=== PATIENT | male | born 1970 | race African-American/Black ===

== ENCOUNTER 2016-10-28 23:00 | Emergency (ER) | payer OTHER ==
--- NOTE | ~2016-10-28 | EKG ---
PATIENT: BRENDA VELASCO UNIT #: [id number] Ventricular Rate: 83 BPM Atrial Rate: 83 BPM P-R Interval: 186 ms QRS Duration: 98 ms Q-T Interval: 358 ms QTC Calculation(Bezet): 420 ms P [place]: 72 degrees Calculated R [place]: 11 degrees Calculated T [place]: 64 degrees Diagnosis Line: Normal sinus rhythm Diagnosis Line: Normal ECG Diagnosis Line: No previous ECGs available Diagnosis Line: Confirmed by LYNDSEY WILSON MD ([id number]) on 11/05/2016 Diagnosis Line: 11:53:07 AM INTERPRETING MD: KATIE HOU
--- NOTE | ~2016-10-28 | CT16 ---
[facility] A Service [facility] RADIOLOGY TEXT RESULTS PATIENT: BRENDA VELASCO LOCATION: SED : 72 UNIT #: [id number] AGE: [address]: Elroy Mckeon MD SEX: M ORDER DR: [id number] [address] [address] [id number] E MR#: [id number] Acc #: [id number] NAME: BRENDA VELASCO : 1970 SEX: M STUDY DATE/TIME: 10/29/2016 0:44 UNIT: SED ROOM: STUDY DESCRIPTION: CT Angio Chest for PE Attending Physician: Elroy Mckeon M.D. Ordering Physician: Elroy Mckeon M.D. MEDICAL IMAGING REPORT This report is preliminary unless electronic signature is present. EXAM CT chest with pulmonary embolus protocol HISTORY Chest pain. Shortness of air. TECHNIQUE Patient was given 80 cc of Isovue-370 and spiral imaging was performed through the chest. 3-D reconstructions of the pulmonary arteries were generated. This CT exam was performed with one or more of the following radiation dose reduction techniques: automatic exposure control, adjustment of mA and/or kV according to patient size, and iterative reconstruction. FINDINGS There is optimal opacification of the pulmonary arteries and there is no CT evidence of pulmonary embolus. The aorta is normal in size. The visualized portions of the upper abdomen are normal. The thyroid gland is normal. The lungs are clear. The bones are unremarkable. IMPRESSION Normal study. No CT evidence of pulmonary embolus. Dictated by... Neo Nava M.D. THIS IS AN ELECTRONICALLY VERIFIED REPORT Neo Nava M.D. at 10/29/2016 2:15 PM [facility] A Service [facility] RADIOLOGY TEXT RESULTS PATIENT: BRENDA VELASCO LOCATION: SED : 71 UNIT #: [id number] AGE: [address]: Elroy Mckeon MD SEX: M ORDER DR: RED/theo TD: 10/29/2016 01:19 JOB #: [id number] MEDICAL IMAGING REPORT Page 1 of 1
--- NOTE | ~2016-10-28 | CR72 ---
[facility]. [facility] A Service of [facility] RADIOLOGY TEXT RESULTS PATIENT: BRENDA VELASCO LOCATION: SED : 71 UNIT #: [id number] AGE: [address]: Elroy Mckeon MD SEX: M ORDER DR: [id number] [address] [address] [id number] E MR#: [id number] Acc #: [id number] NAME: BRENDA VELASCO : 1970 SEX: M STUDY DATE/TIME: 10/28/2016 23:19 UNIT: SED ROOM: STUDY DESCRIPTION: CR Chest Single View Portable Attending Physician: Elroy Mckeon M.D. Ordering Physician: Elroy Mckeon M.D. MEDICAL IMAGING REPORT This report is preliminary unless electronic signature is present. EXAM Portable chest HISTORY Chest pain, shortness of air for 30 minutes. FINDINGS AP portable view of the chest is obtained. The heart size and vascularity are normal. The lungs are clear. The bones are normal. IMPRESSION No active disease. Dictated by... Neo Nava M.D. THIS IS AN ELECTRONICALLY VERIFIED REPORT Neo Nava M.D. at 10/29/2016 1:59 AM FEL/pcl TD: 10/29/2016 00:36 JOB #: [id number] MEDICAL IMAGING REPORT Page 1 of 1
[2016-10-28 22:55] LABS: BASOPHIL# 0.1 X10e3 (0-0.3); BASOPHIL% 1.1 % (0-2.5); EOSINOPHIL# 0.2 X10e3 (0-0.7); EOSINOPHIL% 1.5 % (0.0-7.0); HEMATOCRIT 42.7 % (38.0-50.0); HEMOGLOBIN 14.5 gm/dL (13.0-16.0); LYMPHOCYTE# 5.6 X10e3 (1.0-3.5); LYMPHOCYTE% 44.4 % (17.0-45.0); MEAN CELL VOLUME 93.2 FL (83-96); MEAN CORPUSCULAR HEMOGLOBIN 31.5 PG (28-34); MEAN CORPUSCULAR HGB CONC 33.8 g/dL (30-36); MEAN PLATELET VOLUME 9.3 FL (6.5-11.5); MONOCYTE# 1.4 X10e3 (0-1.0); MONOCYTE% 10.7 % (3.0-12.0); NEUTROPHIL# 5.3 X10e3 (1.5-7.1); NEUTROPHIL% 42.3 % (40-75); PLATELET COUNT 205 X10e3 (140-420); RED BLOOD COUNT 4.58 X10e (3.90-5.60); RED CELL DISTRIBUTION WIDTH 13.8 % (11.0-15.5); WHITE BLOOD COUNT 12.6 X10e3 (4.0-10.5)
[2016-10-28 22:57] LABS: DIFF IND NO
[2016-10-28 22:59] LABS: PROTHROMBIN TIME (PATIENT) 11.4 SECONDS (9.5-12.4)
[~2016-10-28 23:00] MED LIST: LISINOPRIL
[2016-10-28 23:06] LABS: PARTIAL THROMBOPLASTIN TIME 28.6 SECONDS (25.6-38.1)
[2016-10-28 23:07] LABS: POC - CKMB 3.4 ng/mL (0.0-7.9)
[2016-10-28 23:08] LABS: ALBUMIN SERUM 4.8 g/dL (3.5-5.0); BILIRUBIN, DIRECT 0.1 mg/dL (0.0-0.2); BILIRUBIN,INDIRECT 0.3 mg/dL (0.0-0.9); BILIRUBIN,TOTAL 0.4 mg/dL (0.2-2.0); CALCIUM SERUM 9.8 mg/dL (8.4-10.2); CREATININE SERUM 1.2 mg/dL (0.6-1.4); GLOM FILT RATE Estimated 72.6 mL/min (>60); POTASSIUM 3.5 mmol/L (3.5-5.1); PROTEIN TOTAL SERUM 8.1 g/dL (6.0-8.3)
[2016-10-28 23:08] LABS: POC - TROPONIN <0.05 ng/mL (<=0.05)
[2016-10-28 23:43] LABS: DDIMER <200 NG/ML (0-200)
== END 2016-10-29 03:34 ==
LOC: SED 23:00
PROVIDERS: Emergency Medicine
DX: R07.89 Other chest pain (principal); I10 Essential (primary) hypertension
CPT/HCPCS: 36415; 71010; 71275; 80048; 80076; 82553; 84484; 85025; 85379; 85610; 85730; 93005; 96374; 96375; 99284; 99285; J2270; J2405; Q9967